=== PATIENT | male | born 1965 | race Caucasian/White ===

== ENCOUNTER 2021-02-11 01:14 | Day surgery (SDC) | payer OTHER, SELFPAY ==
[2021-02-04 14:52] VITALS: BMI 24.4
[2021-02-11] VITALS (9 sets, daily range): BP systolic 135–180; BP diastolic 81–96; PULSE 61–101; RESP 14–18; TEMP 36.3–36.8; O2SAT 94–100
--- NOTE | 2021-02-11 08:05 | WPDANESEPPF ---
Anes - Initial Pre Proc Eval Procedure: Operation Date: 02/11/21 10:30 Proposed Procedures p Laparoscopic Left Inguinal Hernia Repair With Mesh, DaVinci Assisted - Obdulio Garica DO Date/Time: 02/11/21 08:05 Surgeon: Obdulio Garcia DO Pre Op Diagnosis: Lt Ing Hernia Patient Data Age: 55 Gender: M Height: 1.75 m Weight: 75 kg Allergies Allergy/AdvReac Type Severity Reaction Status Date / Time No Known Allergies Allergy Verified 02/11/21 09:15 Home Medications Medication Instructions Recorded Confirmed Type amlodipine 5 mg tablet 5 mg PO DAILY 01/17/21 02/04/21 History fluticasone propionate 50 1 spray INTRANASAL DAILY 01/17/21 02/04/21 History mcg/actuation nasal spray,suspension rivaroxaban [Xarelto] 10 mg PO DAILY 02/04/21 02/04/21 History Patient hx anesthesia problems: none Family hx anesthesia problems: none Results Review: All pre-operative results and documents have been reviewed as part of the pre-operative evaluation. [facility] Past Medical History Medical History (Updated 02/11/21 @ 09:48 by Cruz Albert DO) History of blood clots History of throat cancer 05/2019 - chemo/radiation completed 03/09 Hypertension Kidney stones [facility] current use of anticoagulant Surgical History Surgical History H/O sinus surgery History of ankle surgery History of tonsillectomy Social History Social History Smoking status: Never smoker Second hand tobacco smoke exposure: No Alcohol intake: current Alcohol use details: social Substance use: never Substance use type: does not use Living arrangements: with family Additional occupation/education comments: Sustain Engineer Spiritual care concerns: No Anes - Eval Final PreProcedure Day of Procedure 02/11/21 08:05 Patient weight: normal Heart: regular rate and rhythm Lungs: clear to auscultation and normal air movement Airway: Mallampati scale class II Neurological: alert and oriented Last oral intake: >/= 8 hours ASA classification: III Emergent: no Anesthetic plan: proceed Anesthesia type and monitoring: general ETT and standard monitoring Results Review: All pre-operative results and documents have been reviewed as part of the pre-operative evaluation. Informed Consent: The patient's anesthetic plan and its attendant risks and benefits were discussed with the patient/family/POA. Questions were solicited and answers provided to the satisfaction of the patient/family/POA.
--- NOTE | 2021-02-11 08:12 | ECG_ITS ---
Measurements Intervals [place] Rate: 61 P: 30 CT: 176 QRS: 12 QRSD: 84 T: 12 QT: 402 QTc: 405 Interpretive Statements SINUS RHYTHM BASELINE ARTIFACT- III, V2 NORMAL ECG Electronically Signed On 02-11-2021 15:32:57 CDT by Issa Sarabia D.O.
[2021-02-11] MEDS: ACETAMINOPHEN 500 MG TABLET 1000 MG PO (09:22)
[2021-02-11] MEDS: KETOROLAC 15 MG/ML VIAL (*BKC) IV PUSH (09:37)
[2021-02-11] MEDS: LACTATED RINGERS 1,000 ML 30 ML IV CONT ×2 (09:41→11:30)
--- NOTE | 2021-02-11 09:53 | WPDHPUPDATE1 ---
History and Physical Update Update Date/Time: 02/11/21 09:53 History and Physical has been reviewed, including an updated exam of the patient. There are NO changes in the patient's condition. Risks, benefits, and alternatives have been discussed and questions answered. Patient agrees to proceed with procedure.
[2021-02-11] MEDS: ceFAZolin 2 GM/D5W 50 ML 2 GM/50 ML BAG IVPB (10:18)
[2021-02-11] MEDS: BUPIVACAINE HCL 0.5% PF 30 ML VIAL INFILTRATE (11:10)
--- NOTE | 2021-02-11 11:21 | W.PM.PROC2 ---
Procedure Note - Detailed Date of Procedure 02/11/21 Pre-op Diagnosis Left inguinal hernia Post-op Diagnosis same (Indirect left inguinal hernia) Procedure Performed Laparoscopic left inguinal hernia repair with mesh, da Jacklyn assisted Surgeon Obdulio Garcia, Anesthesia general and local (0.5% bupivacaine with epinephrine) Indications This is a 55-year-old man who presents with a recent finding of a left inguinal hernia. He reports on 01/08/21 at work he was closing a container door shut and tiffany a sharp pain in the left groin. he reports the pain was there for about 5 minutes and then about 10 minutes later went to the bathroom and noticed swelling. That is when he reached out to the nurse at his job site. He went and had a CT scan of the abdomen and pelvis without contrast on 01/09/21 that showed a small fat filled left inguinal hernia is present. He reports he has had pain in the groin and swelling ever since. He reports he has noticed when lifting or when on his feet for long periods of time. Findings Laparoscopic left inguinal hernia repair was performed. A robotic transabdominal preperitoneal approach was utilized. The patient was found to have an indirect left inguinal hernia. A preperitoneal pocket was created and the hernia sac was reduced far enough posteriorly. A large left Bard 3DMax mid mesh was placed within the preperitoneal pocket overlying the entire left myopectineal orifice. No specimens were obtained for pathology. There was no evidence of right inguinal hernia on inspection. Description of Procedure Procedure as well as risks, benefits, and alternatives were discussed with the patient. Written consent was obtained and placed in chart prior to procedure. Patient was brought back to surgical suite. He was placed supine on operating table. Time-out was done to confirm patient and procedure. He was then intubated by Anesthesia Department. His abdomen was prepped and draped in sterile fashion using chlorhexidine prep. 0.5% bupivacaine with epinephrine was infiltrated at each location for incision. A 12 millimeter transverse incision was made just superior to the umbilicus using a 15 blade scalpel. Blunt dissection was carried out down to the linea alba. A vertical incision was made at the linea alba using a 15 blade scalpel. The peritoneum was then bluntly entered. A 12 millimeter trocar was inserted and carbon dioxide insufflation was used to create a pneumoperitoneum. A camera was inserted and the abdominal cavity was inspected. The patient was placed in slight Trendelenburg position. An 8 millimeter incision was made on the right lateral abdomen and an 8 millimeter trocar was inserted under direct visualization. Another 8 millimeter incision was made in the left lateral abdomen and an 8 millimeter trocar was inserted under direct visualization. The robotic arms were brought up to the patient's bedside and secured to the ports. The camera and instruments were inserted. I then moved over to the robotic console and took control of the camera and instruments. After careful inspection of the abdominal cavity, I began scoring the peritoneum along the left lower quadrant using scissors with electrocautery. The preperitoneal plane was entered and this was carefully dissected caudally along the inferior epigastric vessels. Careful dissection with scissors with electrocautery and blunt dissection was used to continue this dissection. I dissected far enough laterally to allow for mesh placement, and also dissected medially to identify the pubic arch and Davonte's ligament. The hernia sac was identified and carefully dissected posteriorly. The cord contents were also identified and the peritoneum was carefully dissected far enough posteriorly to allow for mesh placement. Once an adequate pocket was created, I then placed the mesh within the preperitoneal pocket and carefully unfolded it. The mesh was centered on the hernia defect with
--- NOTE | 2021-02-11 12:03 | SUR.PHASEI ---
PT RESTING QUIETLY. AWAKENS EASILY. RATES PAIN 4-5/10. DENIES NEED FOR PAIN MEDICINE AT THIS TIME.
[2021-02-11] MEDS: fentaNYL CITRATE INJ (*CRX) 100 MCG/2 ML VIAL 25 MCG IV PUSH ×2 (12:11→12:18)
--- NOTE | 2021-02-11 12:12 | SUR.PHASEI ---
PT DECIDED HE WOULD TAKE SOME PAIN MEDICINE
--- NOTE | 2021-02-11 12:21 | SUR.PHASEI ---
PT AWAKE AND ALERT, STATES PAIN MUCH BETTER, READY TO SEE SPOUSE.
[2021-02-11] MEDS: oxyCODONE HCL (*CRX) 5 MG TAB IR PO (13:08)
--- NOTE | 2021-02-11 13:56 | SUR.PHASEII ---
1340; pt awake and alert. states ready to go home. voided.
== END 2021-02-11 13:50 | disposition home or self-care (01) ==
PROVIDERS: PCP Internal Medicine Infectious Disease; Visit Provider Surgery
PROC: 8E0Y4CZ Robotic Assisted Procedure of Lower Extremity, Percutaneous Endoscopic Approach (ICD-10-PCS; CPT 49650; principal; 2021-02-11 10:30)
DX: K40.90 Unilateral inguinal hernia, without obstruction or gangrene, not specified as recurrent (principal); I10 Essential (primary) hypertension; Z86.718 Personal history of other venous thrombosis and embolism; Z79.01 Long term (current) use of anticoagulants; Z85.819 Personal history of malignant neoplasm of unspecified site of lip, oral cavity, and pharynx; Z92.21 Personal history of antineoplastic chemotherapy; Z92.3 Personal history of irradiation
CPT/HCPCS: 49650; S2900; 36415; 86850; 86900; 86901; 93005; A9270; J0690; J1100; J1885; J2405; J2704; J2710; J3010; J7120